=== PATIENT | male | born 1985 | race Caucasian/White ===

== ENCOUNTER 2017-11-27 09:13 | Emergency (ER) | payer MEDICAID, SELFPAY ==
[2017-11-27 09:29] VITALS: BP 145/75; PULSE 102; RESP 22; TEMP 37; O2SAT 98; BMI 24.4
--- NOTE | 2017-11-27 09:56 | CT_ITS ---
CT abdomen pelvis w con CLINICAL INDICATION: Nausea, vomiting, diarrhea ITS.REASON: n/v x 3 days ORDERING PHYSICIAN: Wanda Camejo MD PATIENT AGE: 31 years COMPARISON: None TECHNIQUE: Axial images obtained with sagittal and coronal reformats. PROCEDURE: Oral Contrast: None IV Contrast: 75 mL's of Isovue-370. FINDINGS: Lung bases clear. No focal liver lesion is evident. Scattered opacities are present within the gallbladder is some hyperdense and some hypodensities consistent with gallstones. Ultrasound may confirm. Spleen, adrenal glands, and pancreas are unremarkable. No renal mass or obstructing renal or ureteral calculus is evident. No intestinal obstruction or free air. Unremarkable appendix. There is mild thickening of the ascending, transverse, and descending colon. This may be due to nondistention or mild colitis. No evidence of diverticulitis. No abscess or free air. Seminal vesicles are somewhat prominent which is nonspecific. No pelvic mass or abnormal fluid collection. No acute bony anomalies. IMPRESSION: 1. Cholelithiasis 2. Thickening of the colon as described above which may be due to nondistention or mild colitis.
[2017-11-27 10:06] LABS: Basophils % 0.5 % (0.1-2.0); Eosinophils % 0.6 % (0.1-12.0); Hematocrit 53.5 % (42.0-52.0); Lymphocytes # 1.5 K/mm3 (0.7-4.5); Lymphocytes % 20.2 K/mm3 (10-50); Mean Corpuscular HGB Conc 33.6 g/dL (31.8-35.4); Mean Corpuscular Hemoglobin 29.6 pg (27.0-31.2); Mean Corpuscular Volume 88.3 fl (80-94); Mean Platelet Volume 7.8 fl (7.4-10.4); Monocytes # 0.4 K/mm3 (0.1-1.0); Monocytes % 5.5 % (1.7-9.3); Neutrophils # 5.3 K/mm3 (1.8-7.8); Neutrophils % 73.3 % (37.0-80.0); Platelet Count 297 K/mm3 (142-424); Red Blood Count 6.06 M/mm3 (4.60-6.20); Red Cell Distribution Width 12.2 % (11.5-17.5); White Blood Count 7.2 K/mm3 (4.8-10.8)
--- NOTE | 2017-11-27 10:06 | HMH.EDNVD ---
ED Disposition Clinical Impression: Colitis, Nausea & vomiting, Diarrhea, Dehydration, mild, Cholelithiasis Disposition: Home, Self-Care Condition on Discharge: Fair - Critical Care Critical Care Time: No Attestation: On 11/27/17, the high probability of a clinically significant, sudden or life threatening deterioration of the following system(s) required my full and direct attention, intervention and personal management. The time I documented below is in addition to time spent performing reported procedures but includes the following listed in this critical care notation. Medical Decision Making - Medical Records Medical records reviewed: Yes: I reviewed the patient's medical records. - Luisito Inquiry Pt receiving controlled substance: No Luisito was queried for this patient: No Vital Signs: 11/27/17 09:29 Temperature 98.6 F Temperature Source Oral Pulse Rate [Right Brachial] 102 H Respiratory Rate 22 Blood Pressure [Right Arm] 145/75 Blood Pressure Mean [Right Arm] 98 Blood Pressure Source [Right Arm] Automatic Cuff Blood Pressure Position [Right Arm] Sitting 02 Sat by Pulse Oximetry 98 - Lab Data Lab Results 11/27/17 09:25: WBC 7.2, RBC 6.06, Hgb 18.0, Hct 53.5 H, MCV 88.3, MCH 29.6, MCHC 33.6, RDW 12.2, Plt Count 297, MPV 7.8, Neut % (Auto) 73.3, Lymph % (Auto) 20.2, [place] % (Auto) 5.5, Eos % (Auto) 0.6, Baso % (Auto) 0.5, Neut # (Auto) 5.3, Lymph # (Auto) 1.5, [place] # (Auto) 0.4, Eos # (Auto) 0.0, Baso # (Auto) 0.0 11/27/17 09:25: Sodium 141, Potassium 3.8, Chloride 101, Carbon Dioxide 31, Anion Gap 12.8, BUN 14, Creatinine 1.32 H, Estimated Creat Clear 93, Estimated GFR 64, Est GFR ( Amer) 78, Glucose 119 H, Calcium 9.9, Total Bilirubin 3.3 H, Direct Bilirubin 0.3 H, AST 14 L, ALT 29, Alkaline Phosphatase 86, Total Protein 9.2 H, Albumin 4.6, Globulin 4.6 H, Albumin/Globulin Ratio 1.0 L 11/27/17 09:25: Lipase 102 03/15/18 09:25: Magnesium 2.0 11/27/17 10:00: Urine Color Yellow, Urine Appearance Clear, Urine pH 6.0, Ur Specific [place] <= 1.005, Urine Protein Negative, Urine Glucose (UA) Negative, Urine Ketones 1+, Urine Blood Trace-i, Urine Nitrate Negative, Urine Bilirubin Negative, Urine Urobilinogen 1.0, Ur Leukocyte Esterase Negative, Urine RBC Occasional, Urine WBC None, Ur Squamous Epith Cells 5-10, Urine Bacteria Trace 11/27/17 10:00: Urine Opiates Screen Negative, Ur Barbituates Screen Negative, Ur Phencyclidine Scrn Negative, Ur Amphetamines Screen Negative, U Methamphetamines Scrn Negative, U Benzodiazepines Scrn Negative, Urine Cocaine Screen Negative, U Marijuana (THC) Screen Negative Result diagrams: 11/27/17 09:25 11/27/17 09:25 Orders (Tests/Meds): ED MEDICATIONS Generic Name Dose Route Start Last Admin Trade Name Freq PRN Reason Stop Dose Admin Sodium Chloride 1,000 mls @ 999 mls/hr 11/27/17 13:00 11/27/17 13:00 Sod Chlor 0.9% 1000ml Bag IV 11/27/17 14:00 999 mls/hr .Q1H1M HÉCTOR Administration Discontinued Medications Generic Name Dose Route Start Last Admin Trade Name Freq PRN Reason Stop Dose Admin Sodium Chloride 500 mls @ 999 mls/hr 11/27/17 12:00 11/27/17 12:07 Sod Chlor 0.9% 1000ml Bag IV 11/27/17 12:30 Not Given .Q31M HÉCTOR Sodium Chloride 1,000 mls @ 999 mls/hr 11/27/17 12:15 11/27/17 12:12 Sod Chlor 0.9% 1000ml Bag IV 11/27/17 13:15 999 mls/hr .Q1H1M HÉCTOR Administration Iopamidol 75 ml 11/27/17 10:43 11/27/17 10:44 [id number]; 75ml Vial IV 11/27/17 10:44 75 ml ONCE ONE Administration Loperamide HCl 4 mg 11/27/17 10:05 11/27/17 10:41 Imodium 2 Mg Capsule PO 11/27/17 10:06 4 mg ONCE ONE Administration Ondansetron HCl 4 mg 11/27/17 10:05 11/27/17 10:41 Zofran 4mg/2ml Vial IV 11/27/17 10:06 4 mg ONCE ONE Administration Sodium Chloride 10 ml 11/27/17 10:43 11/27/17 10:44 Rad-Saline Flush 10ml Syringe IV 11/27/17 10:44 10 ml ONCE ONE Administration ORDERS Category Date Kilo
[2017-11-27 10:10] LABS: Lipase 102 u/L (73-393)
--- NOTE | 2017-11-27 10:11 | ED_ITS ---
ED Disposition Clinical Impression: Colitis, Nausea & vomiting, Diarrhea, Dehydration, mild, Cholelithiasis Disposition: Home, Self-Care Condition on Discharge: Fair - Critical Care Critical Care Time: No Attestation: On 11/27/17, the high probability of a clinically significant, sudden or life threatening deterioration of the following system(s) required my full and direct attention, intervention and personal management. The time I documented below is in addition to time spent performing reported procedures but includes the following listed in this critical care notation. Medical Decision Making - Medical Records Medical records reviewed: Yes: I reviewed the patient's medical records. - Luisito Inquiry Pt receiving controlled substance: No Luisito was queried for this patient: No Vital Signs: 11/27/17 09:29 Temperature 98.6 F Temperature Source Oral Pulse Rate [Right Brachial] 102 H Respiratory Rate 22 Blood Pressure [Right Arm] 145/75 Blood Pressure Mean [Right Arm] 98 Blood Pressure Source [Right Arm] Automatic Cuff Blood Pressure Position [Right Arm] Sitting 02 Sat by Pulse Oximetry 98 - Lab Data Lab Results 11/27/17 09:25: WBC 7.2, RBC 6.06, Hgb 18.0, Hct 53.5 H, MCV 88.3, MCH 29.6, MCHC 33.6, RDW 12.2, Plt Count 297, MPV 7.8, Neut % (Auto) 73.3, Lymph % (Auto) 20.2, [place] % (Auto) 5.5, Eos % (Auto) 0.6, Baso % (Auto) 0.5, Neut # (Auto) 5.3 , Lymph # (Auto) 1.5, [place] # (Auto) 0.4, Eos # (Auto) 0.0, Baso # (Auto) 0.0 11/27/17 09:25: Sodium 141, Potassium 3.8, Chloride 101, Carbon Dioxide 31, Anion Gap 12.8, BUN 14, Creatinine 1.32 H, Estimated Creat Clear 93, Estimated GFR 64, Est GFR ( Amer) 78, Glucose 119 H, Calcium 9.9, Total Bilirubin 3.3 H, Direct Bilirubin 0.3 H, AST 14 L, ALT 29, Alkaline Phosphatase 86, Total Protein 9.2 H, Albumin 4.6, Globulin 4.6 H, Albumin/Globulin Ratio 1.0 L 11/27/17 09:25: Lipase 102 03/15/18 09:25: Magnesium 2.0 11/27/17 10:00: Urine Color Yellow, Urine Appearance Clear, Urine pH 6.0, Ur Specific [place] <= 1.005, Urine Protein Negative, Urine Glucose (UA) Negative, Urine Ketones 1+, Urine Blood Trace-i, Urine Nitrate Negative, Urine Bilirubin Negative, Urine Urobilinogen 1.0, Ur Leukocyte Esterase Negative, Urine RBC Occasional, Urine WBC None, Ur Squamous Epith Cells 5-10, Urine Bacteria Trace 11/27/17 10:00: Urine Opiates Screen Negative, Ur Barbituates Screen Negative, Ur Phencyclidine Scrn Negative, Ur Amphetamines Screen Negative, U Methamphetamines Scrn Negative, U Benzodiazepines Scrn Negative, Urine Cocaine Screen Negative, U Marijuana (THC) Screen Negative Result diagrams: 11/27/17 09:25 11/27/17 09:25 Orders (Tests/Meds): ED MEDICATIONS Generic Name Dose Route Start Last Admin Trade Name Freq PRN Reason Stop Dose Admin Sodium Chloride 1,000 mls @ 999 mls/hr 11/27/17 13:00 11/27/17 13:00 Sod Chlor 0.9% 1000ml Bag IV 11/27/17 14:00 999 mls/hr .Q1H1M HÉCTOR Administration Discontinued Medications Generic Name Dose Route Start Last Admin Trade Name Freq PRN Reason Stop Dose Admin Sodium Chloride 500 mls @ 999 mls/hr 11/27/17 12:00 11/27/17 12:07 Sod Chlor 0.9% 1000ml Bag IV 11/27/17 12:30 Not Given .Q31M HÉCTOR Sodium Chloride 1,000 mls @ 999 mls/hr 11/27/17 12:15 11/27/17 12:12 Sod Chlor 0.9% 1000ml Bag IV 11/27/17 13:15 999 mls/hr .Q1H1M HÉCTOR Administration Iopami
[2017-11-27 10:14] LABS: Alanine Aminotransferase 29 U/L (12-78); Albumin Level 4.6 gm/dL (3.4-5.0); Alkaline Phosphatase 86 U/L (46-116); Anion Gap 12.8 mEq/L (5-15); Aspartate Amino Transferase 14 U/L (15-37); Bilirubin,Direct 0.3 mg/dL (0.0-0.2); Bilirubin,Total 3.3 mg/dL (0.2-1.0); Blood Urea Nitrogen 14 mg/dL (7-18); Calcium 9.9 mg/dL (8.5-10.1); Carbon Dioxide 31 mmol/L (21.0-32.0); Chloride 101 mmol/L (98-107); Creatinine Clearance Estimated 93 mL/min (0-300); Creatinine,Serum 1.32 mg/dL (0.70-1.30); Estimated Glomerular Filt Rate 64 ml/min (>60); GFR (African American) 78 ML/MIN (>60); Globulin 4.6 gm/dl (1.3-3.2); Glucose 119 mg/dL (74-106); Potassium 3.8 mmoL/L (3.5-5.1); Sodium 141 mmol/L (136-145); Total Protein,Serum 9.2 gm/dL (6.4-8.2)
[2017-11-27 11:48] LABS: Microscopic, Urine URINE MICROSCOPIC (MICROSCOPIC)
[2017-11-27 12:00] LABS: Appearance,Urine CLEAR (Clear); Bilirubin,Urine Negative (Negative); Blood, Urine TRACE-I (Negative); Color,Urine YELLOW (Yellow); Glucose,Urine (UA) Negative (Negative); Ketones,Urine 1+ (Negative); Leukocyte Esterase,Urine Negative (Negative); Nitrate,Urine Negative (Negative); Protein,Urine Negative (Negative); Specific Gravity, Urine <= 1.005 (1.005-1.030)
[2017-11-27 12:13] LABS: Bacteria,Urine Trace /lpf; RBC,Urine Occasional #/hpf (0-3)
[2017-11-27 12:17] LABS: Amphetamine/Metha Screen,Urine Negative ng/mL (<1000); Barbiturates Screen,Urine Negative ng/mL (<200); Benzodiazepines Screen,Urine Negative ng/mL (200); Cannabinoid Screen,Urine Negative ng/mL (<50); Cocaine Screen,Urine Negative ng/g (<300); Methadone Screen,Urine Negative ng/mL (<300); Opiate Screen,Urine Negative ng/mL (<300); Phencyclidine Screen,Urine Negative ng/mL (<25)
[2017-11-27 14:22] VITALS: BP 112/80; PULSE 82; RESP 18; TEMP 36.8; O2SAT 98
== END 2017-11-27 14:22 | disposition home or self-care (01) ==
LOC: ER 09:41 → 2ND 12:20
PROVIDERS: Emergency Provider Emergency Medicine; Family Provider Internal Medicine Adolescent Medicine; PCP Internal Medicine Adolescent Medicine
DX: K52.9 Noninfective gastroenteritis and colitis, unspecified (principal); K80.20 Calculus of gallbladder without cholecystitis without obstruction; E86.0 Dehydration
CPT/HCPCS: 74177; 80053; 80076; 80305; 81001; 83690; 83735; 85025; 96365; 96366; 96375; 99282; J2405; Q9967

== ENCOUNTER → 2017-11-29 12:09 | Outpatient (CLI) | payer MEDICAID, SELFPAY ==
[2017-11-29 12:47] LABS: Basophils % 0.3 % (0.1-2.0); Eosinophils % 0.3 % (0.1-12.0); Hematocrit 48.2 % (42.0-52.0); Hemoglobin 16.2 g/dL (14.1-18.0); Lymphocytes # 1.3 K/mm3 (0.7-4.5); Lymphocytes % 23.1 K/mm3 (10-50); Mean Corpuscular HGB Conc 33.7 g/dL (31.8-35.4); Mean Corpuscular Volume 89.2 fl (80-94); Mean Platelet Volume 7.4 fl (7.4-10.4); Monocytes # 0.3 K/mm3 (0.1-1.0); Monocytes % 5.8 % (1.7-9.3); Neutrophils % 70.4 % (37.0-80.0); Platelet Count 273 K/mm3 (142-424); White Blood Count 5.6 K/mm3 (4.8-10.8)
[2017-11-29 13:53] LABS: Alanine Aminotransferase 20 U/L (12-78); Albumin Level 4.1 gm/dL (3.4-5.0); Albumin/Globulin Ratio 1.2 (1.1-1.8); Alkaline Phosphatase 71 U/L (46-116); Anion Gap 14.3 mEq/L (5-15); Aspartate Amino Transferase 9 U/L (15-37); Bilirubin,Total 1.9 mg/dL (0.2-1.0); Blood Urea Nitrogen 8 mg/dL (7-18); Calcium 9.2 mg/dL (8.5-10.1); Carbon Dioxide 29 mmol/L (21.0-32.0); Chloride 106 mmol/L (98-107); Creatinine,Serum 1.17 mg/dL (0.70-1.30); Estimated Glomerular Filt Rate 74 ml/min (>60); GFR (African American) 89 ML/MIN (>60); Globulin 3.4 gm/dl (1.3-3.2); Glucose 103 mg/dL (74-106); Potassium 4.3 mmoL/L (3.5-5.1); Sodium 145 mmol/L (136-145); Total Protein,Serum 7.5 gm/dL (6.4-8.2)
== END ==
PROVIDERS: PCP Internal Medicine Adolescent Medicine; Visit Provider Nurse Practitioner Family
DX: K80.00 Calculus of gallbladder with acute cholecystitis without obstruction (principal); N17.9 Acute kidney failure, unspecified
CPT/HCPCS: 36415; 80053; 85025

== ENCOUNTER → 2017-12-03 07:29 | Outpatient (CLI) | payer MEDICARE, MEDICAID, SELFPAY ==
--- NOTE | 2017-12-03 07:33 | US_ITS ---
US abdomen limited: HISTORY: ITS.REASON: CALCULUS OF GB WUTH ACUTE CHOLECYSTITIS ORDERING PHYSICIAN: Jose M Henao MD PATIENT AGE: 31 years COMPARISON: None FINDINGS: PANCREAS: Unremarkable. No obvious mass or abnormal fluid collection. No ductal dilatation LIVER: No focal liver lesions demonstrated. Homogeneous echogenicity. No intrahepatic biliary ductal dilatation evident RIGHT KIDNEY: Unremarkable. Normal size and echogenicity. No hydronephrosis GALLBLADDER: There are multiple gallstones present with mild thickening of the gallbladder wall measuring up to 3 mm. No pericholecystic fluid. Common bile duct is normal at 2 mm. IMPRESSION: Cholelithiasis with minimal thickening of the gallbladder wall. No biliary ductal dilatation or pericholecystic fluid
== END ==
PROVIDERS: Family Provider Internal Medicine Adolescent Medicine; PCP Internal Medicine Adolescent Medicine; Visit Provider Internal Medicine Adolescent Medicine
DX: K80.00 Calculus of gallbladder with acute cholecystitis without obstruction (principal)
CPT/HCPCS: 76705

== ENCOUNTER → 2017-12-10 11:44 | Outpatient (CLI) | payer MEDICARE, MEDICAID, SELFPAY ==
[2017-12-10 12:35] LABS: Basophils % 0.4 % (0.1-2.0); Eosinophils # 0.1 K/mm3 (0.0-0.4); Eosinophils % 1.1 % (0.1-12.0); Hematocrit 47.1 % (42.0-52.0); Lymphocytes # 1.4 K/mm3 (0.7-4.5); Lymphocytes % 25.4 K/mm3 (10-50); Mean Corpuscular HGB Conc 34.1 g/dL (31.8-35.4); Mean Corpuscular Hemoglobin 30.1 pg (27.0-31.2); Mean Corpuscular Volume 88.4 fl (80-94); Mean Platelet Volume 7.7 fl (7.4-10.4); Monocytes # 0.4 K/mm3 (0.1-1.0); Monocytes % 6.9 % (1.7-9.3); Neutrophils # 3.5 K/mm3 (1.8-7.8); Neutrophils % 66.2 % (37.0-80.0); Platelet Count 261 K/mm3 (142-424); Red Blood Count 5.33 M/mm3 (4.60-6.20); Red Cell Distribution Width 12.1 % (11.5-17.5); White Blood Count 5.3 K/mm3 (4.8-10.8)
[2017-12-10 13:17] LABS: Alanine Aminotransferase 26 U/L (12-78); Albumin Level 4.2 gm/dL (3.4-5.0); Alkaline Phosphatase 80 U/L (46-116); Amylase 56 U/L (25-125); Aspartate Amino Transferase 10 U/L (15-37); Bilirubin,Direct 0.3 mg/dL (0.0-0.2); Bilirubin,Total 1.7 mg/dL (0.2-1.0); Lipase 202 u/L (73-393); Total Protein,Serum 7.8 gm/dL (6.4-8.2)
== END ==
PROVIDERS: Visit Provider Surgery
DX: K80.01 Calculus of gallbladder with acute cholecystitis with obstruction (principal)
CPT/HCPCS: 36415; 80076; 82150; 83690; 85025

== ENCOUNTER 2017-12-18 09:47 | Day surgery (SDC) | payer MEDICARE, MEDICAID, SELFPAY ==
[2017-12-17 10:05] VITALS: BMI 23.7
[2017-12-18] VITALS (11 sets, daily range): BP systolic 118–140; BP diastolic 77–96; PULSE 61–86; RESP 12–20; TEMP 36.7–43; O2SAT 97–100
--- NOTE | 2017-12-18 10:07 | HMH.ANESCL ---
[facility] Anesthesia Checklist - Patient Identification Patient Identification: Arm Band - Structural Data Admitted From: Home Consent for Planned Operative Procedure(s) Verified: Yes Verified Documents: Surgical Consent, History and Physical - NPO Status Verified Time NPO: 00:00 - Additional verifications Anesthesia Reactions: No - Airway Assessment C-Spine Mobility Assessed: Yes TMJ Mobility Assessed: Yes Dentition: Poor Dentition (Anterior upper teeth decay) - Neurological Assessment Level of Consciousness: Awake Hx Seizures: No Numbness or tingling in extremities: No - Anesthesia Plan Anesthesia Risk discussed: Yes Anesthesia Plan: Verified ASA Class: I Anesthesia Type: General [facility] Anesthesia HX I have reviewed the patient's past medical history: Yes Medical History: Denies:: Cancer, Diabetes Mellitus Type 1, Diabetes Mellitus Type 2, Internal Pacemaker, MRSA Other Surgeries: Yes: No Previous Surgery. No: Pacemaker Amputation: No Fractures: No *Family Hx:: Asthma, Diabetes
[2017-12-18 10:42] LABS: Alanine Aminotransferase 33 U/L (12-78); Albumin Level 4.3 gm/dL (3.4-5.0); Alkaline Phosphatase 82 U/L (46-116); Aspartate Amino Transferase 17 U/L (15-37); Bilirubin,Direct 0.2 mg/dL (0.0-0.2); Total Protein,Serum 8.3 gm/dL (6.4-8.2)
--- NOTE | 2017-12-18 12:08 | P.OP_ITS ---
Date of procedure: 12/18/17 Pre-op Diagnosis:: Chronic calculus cholecystitis Evaded bilirubin Post-op Diagnosis:: Same Procedure performed:: Laparoscopic cholecystectomy with intraoperative cholangiogram Surgeon:: Keven Greenberg MD STONE DRILLER HELPER:: Jean Pierre Aguilar Anesthesia: GETA Estimated blood loss (mL): 15 Clinical Note:: This is a 32-year-old gentleman with recent right upper quadrant pain and radiographic evidence of chronic calculus cholecystitis. Initial bilirubin 1.9. Repeat bilirubin on day of clinical evaluation 1.7. Repeat bilirubin on day of surgery 1.0 Operative findings:: Significant pericholecystic fat stranding Multiple stones of different sizes Fairly small biliary tree with flow into the small bowel noted on cholangiogram Operative note:: After informed consent was obtained, the patient was taken to the operating room and placed in the supine position. General anesthesia was induced and the abdomen was prepped and draped in a sterile fashion. After infiltration with local anesthetic an infraumbilical incision was made. A Veress needle was placed in position. The abdomen was insufflated. A 5 mm optical trocar was placed in position. Under direct visualization, a 12 mm trocar was placed in the subxiphoid position and 2 additional 5 mm trocars were placed in the right upper quadrant. The gallbladder was elevated up and over the liver margin. The tissue around the cystic duct was carefully dissected. A clip was placed at the infundibulum and a partial otomy was completed. The cholangiogram catheter was secured in position after being entered through a separate right upper quadrant stab incision. Intraoperative cholangiogram revealed a fairly small biliary tree and flow into the small bowel. 3 clips were placed proximally and the duct was transected. Harmonic pedro were then utilized to dissect the gallbladder away from the liver margin with careful attention to the control of the cystic artery. The gallbladder was placed in a retrieval bag and removed through the subxiphoid trocar site. The right upper quadrant was thoroughly irrigated. No active bleeding or bile leak was noted. Fascia at the subxiphoid trocar site was reapproximated utilizing 0 Ethibond. The remaining trocars were removed. All wounds were irrigated and skin was closed with 4-0 Monocryl in a subcuticular fashion. Steri-Strips were applied. The patient's anesthetic agents were reversed and extubation was completed prior to transfer to recovery in stable condition. Condition: stable Disposition: PACU Specimens:: Gallbladder and contents Complications:: No immediate
--- NOTE | 2017-12-18 12:13 | HMH.ANESI ---
[facility] Anesthesia Record Part I Intake, IV Amount: 1,500 Estimated blood loss (mL): 0 Urine output (mL): 0 Blood Pressure: 130/92 SaO2: 98 Pulse Rate: 78 Respiratory Rate: 12 Temperature: 98.9 F Patient is:: Awake, Stable Stable to PACU at:: 12:15
--- NOTE | 2017-12-18 12:13 | HMH.ANESII ---
[facility] Anesthesia Record Part II Discharge Time: 12:45 Destination: [facility] PACU nurse assessment reviewed?: Yes Patient Condition:: Good Anesthesia Complications:: None
--- NOTE | 2017-12-18 12:14 | P.PN_ITS ---
[facility] Anesthesia Record Part II Discharge Time: 12:45 [facility] nurse assessment reviewed?: Yes Patient Condition:: Good Anesthesia Complications:: None
--- NOTE | 2017-12-18 13:06 | PC.NURSE ---
1220- PT AWAKE. RATES PAIN @ 7/10. 30 MG TORADOL GIVEN IV PER INDUSTRIAL ENGINEERING MANAGER ORDERS. SEE EMAR. 1225- PT RATES PAIN @ 7/10. 2 MG MORPHINE GIVEN IV PER INDUSTRIAL ENGINEERING MANAGER ORDERS. SEE EMAR.
--- NOTE | 2017-12-18 13:11 | PC.NURSE ---
1230- PT RATES PAIN @ 03/24. 2 MORE MG MORHINE GIVEN PER [employer] HCM DEVELOPER ORDERS. SEE EMAR.
--- NOTE | 2017-12-18 13:14 | PC.NURSE ---
REPORT CALLED TO MACKENZIE CASTRO RN IN POST-OP. PT TRANSPORTED TO POST OP VIA STR PER HT RN. LEFT CARE OF CD RN IN STABLE CONDITION.
== END 2017-12-18 13:45 | disposition home or self-care (01) ==
LOC: OR 09:49
PROVIDERS: Family Provider Internal Medicine Adolescent Medicine; PCP Internal Medicine Adolescent Medicine; Visit Provider Surgery
DX: K80.10 Calculus of gallbladder with chronic cholecystitis without obstruction (principal)
CPT/HCPCS: 47563; 74300; 76000; 80076; 88304; 96374; J2405; J2710

== ENCOUNTER → 2018-08-26 09:39 | Outpatient (CLI) | payer MEDICARE, MEDICAID, SELFPAY ==
[2018-08-26 10:32] LABS: Basophils % 0.5 % (0.1-2.0); Eosinophils # 0.1 K/mm3 (0.0-0.4); Eosinophils % 0.6 % (0.1-12.0); Hematocrit 47.6 % (42.0-52.0); Hemoglobin 15.8 g/dL (14.1-18.0); Lymphocytes # 1.3 K/mm3 (0.7-4.5); Lymphocytes % 15.5 % (10-50); Mean Corpuscular HGB Conc 33.1 g/dL (31.8-35.4); Mean Corpuscular Hemoglobin 29.4 pg (27.0-31.2); Mean Corpuscular Volume 88.8 fl (80-94); Mean Platelet Volume 7.3 fl (7.4-10.4); Monocytes # 0.4 K/mm3 (0.1-1.0); Monocytes % 4.8 % (1.7-9.3); Neutrophils # 6.6 K/mm3 (1.8-7.8); Neutrophils % 78.7 % (37.0-80.0); Platelet Count 291 K/mm3 (142-424); Red Blood Count 5.36 M/mm3 (4.60-6.20); Red Cell Distribution Width 12.5 % (11.5-17.5); White Blood Count 8.4 K/mm3 (4.8-10.8)
[2018-08-26 11:03] LABS: Alanine Aminotransferase 28 U/L (12-78); Albumin Level 4.1 gm/dL (3.4-5.0); Albumin/Globulin Ratio 1.1 (1.1-1.8); Alkaline Phosphatase 91 U/L (46-116); Anion Gap 12.6 mEq/L (5-15); Aspartate Amino Transferase 15 U/L (15-37); Bilirubin,Total 3.3 mg/dL (0.2-1.0); Blood Urea Nitrogen 13 mg/dL (7-18); Calcium 9.2 mg/dL (8.5-10.1); Carbon Dioxide 29 mmol/L (21.0-32.0); Chloride 102 mmol/L (98-107); Creatinine,Serum 1.23 mg/dL (0.70-1.30); Estimated Glomerular Filt Rate 69 ml/min (>60); GFR (African American) 84 ML/MIN (>60); Globulin 3.7 gm/dl (1.3-3.2); Glucose 114 mg/dL (74-106); Potassium 3.6 mmoL/L (3.5-5.1); Sodium 140 mmol/L (136-145); Total Protein,Serum 7.8 gm/dL (6.4-8.2)
== END ==
PROVIDERS: PCP Internal Medicine Adolescent Medicine; Visit Provider Internal Medicine Adolescent Medicine
DX: R50.9 Fever, unspecified (principal)
CPT/HCPCS: 36415; 80053; 85025

== ENCOUNTER 2021-11-30 08:05 | Emergency (ER) | payer MEDICARE, OTHER, SELFPAY ==
[2021-11-30 08:06] VITALS: BP 133/95; PULSE 69; RESP 18; TEMP 36.8; O2SAT 100; BMI 23.0
[2021-11-30 08:42] VITALS: BP 129/85; PULSE 78; RESP 16; O2SAT 100
[2021-11-30 09:00] VITALS: BP 129/82; PULSE 69; RESP 15; O2SAT 99
[2021-11-30 09:30] VITALS: BP 131/89; PULSE 91; O2SAT 99
--- NOTE | 2021-11-30 09:46 | HMH.EDGENADL ---
ED Disposition Clinical Impression: Abscess of skin or subcutaneous tissue Disposition: Home, Self-Care Condition on Discharge: Good Instructions: DI for Skin Abscess Referrals: Torey Munguia MD [Primary Care Provider] - - Critical Care Critical Care Time: No Attestation: On 11/30/21, the high probability of a clinically significant, sudden or life threatening deterioration of the following system(s) required my full and direct attention, intervention and personal management. The time I documented below is in addition to time spent performing reported procedures but includes the following listed in this critical care notation. Medical Decision Making - Medical Records Medical records reviewed: Yes: I reviewed the patient's medical records. - Luisito Inquiry Pt receiving controlled substance: No Vital Signs: 11/30/21 08:06 11/30/21 08:42 11/30/21 09:00 Temperature 98.2 F Temperature Source Oral Pulse Rate 78 69 Pulse Rate [Right Radial] 69 Respiratory Rate 18 16 15 Blood Pressure 129/85 129/82 Blood Pressure [Right Arm] 133/95 H Blood Pressure Mean 94 Blood Pressure Mean [Right Arm] 107 Blood Pressure Source [Right Arm] Automatic Cuff Blood Pressure Position [Right Arm] Sitting 02 Sat by Pulse Oximetry 100 100 99 Oxygen Delivery Method Room Air Medical Decision Narrative: Patient is a 35-year-old male presenting with a chief complaint of abscess on his left flank. Abscess was incised and packed. Patient was started on a short course of antibiotics. He was given return precautions and wound care instructions and advised to follow-up with his primary care physician for wound check. Patient was agreeable with plan. General Adult HPI - General Chief complaint: Skin/Abscess/Foreign Body Stated complaint: red lump on back Time Seen by Provider: 11/30/21 08:55 Mode of Arrival: Ambulatory Limitations: No Limitations Description of Symptoms (Recalled from ER Triage Doc. by RN): Pt c/o red, swollen, painful knot to left back. No drainage noted. - History of Present Illness HPI narrative: Dexter is a 35-year-old male presenting for chief complaint of abscess on the left flank and the soft tissues that has been developing for the past 2 months. Patient is here today because it has gotten bigger and more painful with worsening redness. Systemic symptoms. He states initially there was some purulent drainage from the wound. - Related Data Previous Rx's Medication Instructions Recorded Ondansetron [Zofran 4mg ODT] 4 mg PO Q8HP PRN #10 tab.rapdis 03/21/18 Sulfamethoxazole/Trimethoprim 1 each PO BID 5 Days #10 tab 11/30/21 [Bactrim DS tablet] Allergies Allergy/AdvReac Type Severity Reaction Status Date / Time NO KNOWN ALLERGIES Allergy Mild Uncoded 12/10/17 10:53 [facility] History - Hepatitis A Screen Drug use history?: No High risk sexual behaviors?: No History of sexually transmitted infection?: No Currently employed?: No Childcare worker?: No Do you have indoor plumbing?: Yes Do you have electricity?: Yes Attestation statement:: This patient has been screened for Hepatitis A risk factors. Medical History: Denies:: Cancer, Diabetes Mellitus Type 1, Diabetes Mellitus Type 2, Internal Pacemaker, MRSA, Seizures Other Medical History: Denies: Blood Transfusion Reaction Laterality Cases: Bilateral: Other Other Surgeries: Yes: No Previous Surgery. No: Pacemaker Amputation: No Fractures: No - Social History Smoking Status: Unknown if ever smoked Alcohol Intake: never Occupational Status: disabled Housing: apartment Family Hx:: No significant family history ROS Obtained: Yes Systems reviewed as appropriate & no additional complaints - Constitutional Constitutional: Denies fatigue, Denies fever(s), Denies night sweats, Denies weight loss - Cardiovascular Cardiovascular: Denies chest pain - Respiratory Respiratory: Denies dyspnea - Gastrointest
[2021-11-30 10:01] VITALS: BP 151/100; PULSE 63; O2SAT 98
[2021-11-30 10:30] VITALS: BP 129/94; PULSE 67; RESP 16; TEMP 37.1; O2SAT 98
== END 2021-11-30 10:30 | disposition home or self-care (01) ==
PROVIDERS: Emergency Provider Emergency Medicine; PCP Emergency Medicine
DX: L02.212 Cutaneous abscess of back [any part, except buttock and flank] (principal); S20.452A Superficial foreign body of left back wall of thorax, initial encounter; L02.416 Cutaneous abscess of left lower limb
CPT/HCPCS: 10060; 99283

== ENCOUNTER → 2021-12-03 14:35 | Outpatient (CLI) | payer MEDICARE, OTHER, SELFPAY ==
--- NOTE | 2021-12-03 14:41 | XR_ITS ---
FINAL REPORT CLINICAL HISTORY: LT KNEE PAIN, injured left knee 2 days ago playing basketball, ran into another person. FINDINGS: 3 views of the left knee were obtained. There is no acute fracture or dislocation. The joint spaces are intact. There is no soft tissue abnormality. IMPRESSION: No acute process. Reviewed, Interpreted and Dictated by Reji Yanes MD Transcribed by Rico Guerra Authenticated by Reji Yanes MD on 12/03/2021 04:27:[address] [facility]
== END ==
PROVIDERS: PCP Internal Medicine Adolescent Medicine; Visit Provider Internal Medicine Adolescent Medicine
DX: M25.562 Pain in left knee (principal)
CPT/HCPCS: 73562

== ENCOUNTER 2025-01-26 12:55 | Emergency (ER) | payer MEDICARE, MEDICAID, SELFPAY ==
[2025-01-26 14:20] VITALS: BP 155/106; PULSE 79; RESP 18; TEMP 36.6; O2SAT 99; BMI 30.7
[2025-01-26 14:30] VITALS: BP 142/99; PULSE 72; O2SAT 99
--- NOTE | 2025-01-26 14:36 | ED_ITS ---
<Statement entered by Dexter Gonzalez MD - 01/26/25 16:13> KIMBERLY Attestation I was consulted by the KIMBERLY, and we discussed the complexity of problems being addressed. I approved the treatment and management plan for this patient's care in the emergency department, thus performing a substantial portion of the medical decision making. Dexter Gonzalez MD Discharge Plan Disposition Patient Disposition: Home, Self-Care Condition: Good Prescriptions Prescriptions: New doxycycline hyclate 100 mg capsule 100 mg PO BID 7 Days Qty: 14 0RF No Action sulfamethoxazole-trimethoprim 1 EACH tablet 1 each PO BID 5 Days Qty: 10 0RF ondansetron 4 MG tablet,disintegrating 4 mg PO Q8HP PRN (Reason: nausea/vomiting) Qty: 10 0RF Referrals Follow up/Referrals: Jose M Henao MD [Primary Care Provider] - See instructions Activity Restrictions/Add. Instructions Additional Instructions/Restrictions: Keep the area clean and dry, avoid topical skin adhesive or any ointment to the area, return to the emergency department any worsening signs or symptoms, please take your antibiotics as prescribed, twice daily for 7 days. Monitor for any worsening redness drainage or pain. Clinical Impressions Clinical Impression: Abscess Instructions Patient Instructions: DI for Epidermal Cyst, DI for Skin Abscess Print Language Print Language: [place] Discharge ED Provider: Dexter Gonzalez General Adult HPI General Chief complaint: Skin/Abscess/Foreign Body Stated complaint: boil L back/Infec. Time Seen by Provider: 01/26/25 14:35 Mode of Arrival: Ambulatory Source of Information: Patient Description of Symptoms (Recalled from ER Triage Doc. by RN): pt presents to ED c/o a boil that has been present for a week. pt states he has been using ointment for a boil. pt reports boil opened on it's on and has been draining. pt states he has been using a bandaid over the area. History of Present Illness HPI narrative: 39-year-old male presents the emergency department with a left-sided lower back/flank boil , states he noticed it 5 days ago, states that his sister has been putting ointment , and gauze on it, he has seen some drainage that was brown , in color, with some localized redness and irritation, he denies any real pain, just admits to irritation, denies any fever chills chest pain shortness of breath nausea vomiting constipation diarrhea, no urinary type symptomatology, patient denies any alcohol tobacco or drug use, has had other surgical history consistent with prior cholecystectomy, otherwise unremarkable past medical surgical history, initial triage vitals unremarkable. Of note, patient states he has had similar boil in the past. Onset (ago): day(s) Related Data Previous Rx's ?Medication ?Instructions ?Recorded ondansetron 4 mg disintegrating 4 mg PO Q8HP PRN nausea/vomiting 03/21/18 tablet ##10 sulfamethoxazole 800 1 each PO BID 5 days #10 tabs 11/30/21 mg-trimethoprim 160 mg tablet doxycycline hyclate 100 mg capsule 100 mg PO BID 7 days #14 caps 01/26/25 Allergies Allergy/AdvReac Type Severity Reaction Status Date / Time NO KNOWN ALLERGIES Allergy Mild Uncoded 12/10/17 10:53 [facility] Disclaimer: The information contained in this section may have been updated after the patient was seen, as this information can be updated by other users. Social History Smoking Status: Never smoker alcohol intake: never current occupational status: disabled Travel in the last 8 weeks?: Inside the [facility] housing: apartment current occupational exposures/hazards: No caffeine: Yes Have you lived/traveled outside [place] in past 30 days?: No Contact w/someone who lives/traveled outside [place] past 30 days?: No Exposure to someone with infectious disease in past 14 days?: No Do you have a fever (greater than 100.4 F or 38 C)?: No Have you tested positive for COVID-19?: No Exposed to someone with COVID-19 in past 14 days?: No Do you have a sore throat?: No Do you have a cough?: No Do you have any weakness?: No Do you have any diarrhea?: No Are you experiencing any unusual bleeding?: No Do you have any muscle aches/pain?: No Do you have any abdominal pain?: No Are you experiencing loss of taste or smell?: No Other Medical History Have you received the Flu Vaccine for this season: No Have you received the Pneumonia Vaccine: No ROS Obtained: Yes All systems reviewed & no additional complaints except as documented Physical Exam General General appearance: alert and in no apparent distress Head Head exam: atraumatic and normocephalic Eye Eye exam: Present PERRL and EOMI ENT ENT exam: Present mucous membranes moist Neck Neck exam: Present normal inspection Chest Chest inspection: Present normal inspection and symmetric chest wall rise Respiratory Respiratory exam: Present normal lung sounds bilaterally; Absent respiratory distress Cardiovascular Cardiovascular exam: Present regular rate and normal rhythm Abdominal Exam Abdominal exam: Present soft; Absent tenderness Extremities Exam Extremities exam: Present normal inspection Neurological Exam Neurological exam: Present alert and oriented X3 Psychiatric Psychiatric exam: Present normal affect Skin Skin exam: Present warm, dry, rash, erythema and other (Some areas of what looks to be irritant contact dermatitis/skin maceration and a small area of what appears to be abscess versus cyst formation on the patient's left lower back/flank area, with some active drainage that is purulent) Medical Decision Making Medical Records Medical records reviewed: Yes I reviewed the patient's medical records. Screening: Per USPSTF and CDC recommendations, given the prevalence of disease in our region, it is our hospital?s policy to screen for HIV and viral Hepatitis for all patients aged 18 and over and those with ongoing risk factors. Luisito Inquiry Pt receiving controlled substance: No Luis[place] was queried for this patient: No Vital Signs: 01/26/25 14:20 Temperature 97.9 F Temperature Source Oral Pulse Rate [Right Radial] 79 Respiratory Rate 18 Blood Pressure [Right Arm] 155/106 H Blood Pressure Mean [Right Arm] 122 Blood Pressure Source [Right Arm] Automatic Cuff Blood Pressure Position [Right Arm] Sitting 02 Sat by Pulse Oximetry 99 Oxygen Delivery Method Room Air Orders (Tests/Meds): ORDERS Category Date Time Status POCUS Point of Care (ER Only) Stat Exams 01/26/25 14:46 Ordered Medical Decision Narrative: 39-year-old female presents the emergency department with an abscess, differential diagnose include not limited to pilar sebaceous cyst, lipoma, cellulitis, abscess among others. I discussed this patient's case with the attending physician Dr. Gonzalez he saw and examined the patient as well. Utilizing bedside POCUS ultrasound, there is a obvious abscess formation, and cobblestoning around the area, I used chlorhexidine and prepped the patient, and then made a poke stab incision with an 11 blade, lots of purulent drainage, serosanguineous drainage, as well as some adipose like tissue was expelled from the area. Will place patient on doxycycline 100 mg p.o. twice daily for 7 days for cellulitis prophylaxis, patient will utilize warm compresses sitz bath's, keep the area clean and dry, he return to emergency room with any worsening signs or symptoms, patient was understanding of the Contreet plan/discharge plan. Procedures Abscess I/D Site: back Side (if applicable): left Technique: incised with #11 blade Irrigation: No Packing used?: none Critical Care Critical Care Time Critical Care Time: No
[2025-01-26 15:00] VITALS: BP 144/102; PULSE 86; O2SAT 99
[2025-01-26 15:55] VITALS: BP 135/68; PULSE 68; RESP 15; TEMP 36.7; O2SAT 96
== END 2025-01-26 15:56 | disposition home or self-care (01) ==
PROVIDERS: Emergency Provider Student in an Organized Health Care Education/Training Program; PCP Internal Medicine Adolescent Medicine
DX: L02.212 Cutaneous abscess of back [any part, except buttock and flank] (principal)
CPT/HCPCS: 10060; 99282; 99285